=== PATIENT | male | born 1995 | race African-American/Black ===

== ENCOUNTER 2021-06-24 02:01 | Emergency (ER) | payer MEDICAID, SELFPAY | END 2021-06-24 02:47 | disposition left against medical advice (07) | LOC: CSHERS 02:01 | DX: Z53.21 Procedure and treatment not carried out due to patient leaving prior to being seen by health care provider (principal) ==

== ENCOUNTER → 2022-08-28 | Emergency (ER) | payer SELFPAY | LOC: CSHERS 19:55 | DX: Z53.21 Procedure and treatment not carried out due to patient leaving prior to being seen by health care provider (principal) ==